=== PATIENT | female | born 1955 | race Caucasian/White ===

== ENCOUNTER → 2016-12-26 | Outpatient (CLI) | payer BC | END | disposition home or self-care (01) | LOC: MW.CHGS 11:48 | PROVIDERS: ATTEND Surgery | DX: K40.90 Unilateral inguinal hernia, without obstruction or gangrene, not specified as recurrent (principal) | CPT/HCPCS: 36415; 82565; 84520 ==

== ENCOUNTER → 2017-01-02 | Outpatient (CLI) | payer BC ==
[~2017-01-02] MED LIST: Iopamidol 755 Mg/ML 100 ML Bottle IVPUSH STA
--- NOTE | 2017-01-02 15:37 | CT ---
CT of the abdomen and pelvis with contrast. HISTORY: Hernia TECHNIQUE: Axial CT images were obtained of the abdomen and pelvis following administration of 57 mL of Isovue-370 in the right antecubital fossa without complication. Coronal and sagittal reconstruct ions obtained. FINDINGS: The lung bases are clear, no pleural effusion. There is a tiny cyst within the left hepatic lobe. Th e spleen and adrenal glands appear normal. There is no bulky retroperitoneal lymphadenopathy or abdo chiki ascites. The kidneys enhance and function symmetrically without evidence of obstructive uropathy. Prominent b ilateral renal peripelvic cysts are noted. The large and small bowel are normal in caliber without evidence of obstruction. The appendix appear s normal. No focal pericolonic inflammation or stranding. There is a 2.2 cm right ovarian cyst. No p elvic lymphadenopathy or significant free pelvic fluid. The urinary bladder appears normal. There is a tiny fat-containing left inguinal hernia. No suspicious osseous abnormalities identified. Degenerative changes are noted within the lower lumb ar spine. IMPRESSION: 1. No acute findings within the abdomen or pelvis. 2. Renal cortical and peripelvic cysts. 3. Tiny fat-containing left inguinal hernia.
== END ==
LOC: MW.DI 12:54
PROVIDERS: ATTEND Surgery
DX: K40.90 Unilateral inguinal hernia, without obstruction or gangrene, not specified as recurrent (principal); N83.201 Unspecified ovarian cyst, right side; Q61.01 Congenital single renal cyst
CPT/HCPCS: 74177; Q9967

== ENCOUNTER 2017-01-19 09:45 | Day surgery (SDC) | payer BC ==
[~2017-01-19 09:45] MED LIST changes: +Bupivacaine 0.25%/EPINEPHrine 1:200,000 10 ML SDV ONE; -Iopamidol 755 Mg/ML 100 ML Bottle IVPUSH STA; +Lactated Ringers 1,000 ML IV SCH; +Lidocaine 1% with EPINEPHrine 1:100,000 20 ML MDV ONE; +Octyl 2-Cyanoacrylate 1 Tube ONE; +ceFAZolin 2 GM in Premix Bag 1 BAG IV ONE
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
[2017-01-19] MEDS ORDERED: fentaNYL 250 MCG/5 ML SDV ONE (11:19)
[2017-01-19] MEDS ORDERED: Midazolam 1 MG/ML 2 ML SDV ONE (11:19)
[2017-01-19] MEDS ORDERED: Lidocaine 2% 5 ML SDV ONE (11:19)
[2017-01-19] MEDS ORDERED: Ondansetron 4 MG/2 ML SDV ONE (11:19)
[2017-01-19] MEDS ORDERED: Propofol 200 MG/20 ML SDV ONE (11:19)
[2017-01-19] MEDS ORDERED: Rocuronium 10 MG/ML 10 ML Syringe ONE (11:19)
[2017-01-19] MEDS ORDERED: ceFAZolin 1 GM Vial ONE (11:34)
[2017-01-19] MEDS ORDERED: fentaNYL 100 MCG/2 ML SDV IVPUSH PRN (12:15)
--- NOTE | 2017-01-19 13:52 | PCM.POSTAN ---
POST ANESTHESIA ASSESSMENT - MENTAL STATUS Mental Status: alert, oriented - RESPIRATORY Respiratory Status: respiratory rate WNL, airway patent - CARDIOVASCULAR CV Status: pulse rate WNL, blood pressure stable - GASTROINTESTINAL GI Status: no symptoms - POST OP HYDRATION Hydration Status: adequate & stable
--- NOTE | 2017-01-19 13:59 | PCM.OPNOTE ---
- General Post-Op/Procedure Note Date of Surgery/Procedure: 01/19/17 Operative Procedure(s): L inguinal hernia repair w mesh Findings: L large indirect hernia w pulsating iliac artery very close. [id number] Pre Op Diagnosis: ing hernia L Post-Op Diagnosis: Same Anesthesia Technique: General ET tube Primary Surgeon: Karthikeyan Spear Pathology: sent Complications: None Condition: Good Free Text/Narrative:: Intake & Output 01/18/17 01/19/17 01/19/17 22:59 06:59 14:59 Intake Total 1899 Balance 1899
[2017-01-19 15:07] VITALS: BP 118/64
--- NOTE | 2017-01-19 19:25 | PCM48HPAN ---
Post Anesthesia Note - EVALUATION WITHIN 48HRS OF ANESTHETIC Vital Signs in Normal Range: Yes Patient Participated in Evaluation: Yes Respiratory Function Stable: Yes Airway Patent: Yes Cardiovascular Function Stable: Yes Hydration Status Stable: Yes Pain Control Satisfactory: Yes Nausea and Vomiting Control Satisfactory: Yes Mental Status Recovered: Yes
--- NOTE | 2017-01-24 07:22 | OR ---
SURGEON: Karthikeyan Spear MD DATE OF PROCEDURE: 01/19/2017 PREOPERATIVE DIAGNOSIS: Left inguinal hernia. POSTOPERATIVE DIAGNOSIS: Left inguinal hernia. PROCEDURE PERFORMED: Repair of left inguinal hernia with mesh. COMPLICATIONS: None. FINDING: A very large indirect hernia with a pulsating iliac artery, very close and did not put a plug because of that and a mesh was used to reinforce the inguinal floor. PROCEDURE PERFORMED: The patient was taken to the operating room, placed in a supine position. Upon induction of general endotracheal anesthesia, the patient's left inguinal area was prepped and draped in a sterile fashion. A time-out was then called, patient identified, procedure identified, antibiotic given. Procedure then started. After assessment of appropriate landmark, a light drip was applied prophylactically and antibiotic given prophylactically. After assessment of appropriate landmark, a skin incision was made two finger above the left inguinal crease and the patient weighed 102 pounds. There is absolutely no subcutaneous fat or subcutaneous structure. The external oblique was right in front of the eye just after cutting the skin and the hernia was located and the external oblique was opened along its fiber direction by the use of the Metzenbaum scissor, and the content clearly was carefully delineated from the inguinal floor. There was a large lipoma and this was then pushed back to the peritoneal cavity. Assessment of the hernia is large hernia, at lease 1 cm, and the iliac artery, because of patient's habitus, patient weighed 102 pounds, the iliac artery you can feel the pulsation right at the boundary right below the inguinal ligament. Because of the iliac artery's proximity and the patient's skinny nature, there is absolutely nothing in between the Poupart ligament and the iliac artery, very little, I mean you can even feel the arteries pulsating and decided not to put a plug, just use ligament to reinforce the situation and just use the mass to reinforce the inguinal floor. A custom- made mesh, small size, was anchored to the lateral aspect of the rectus muscle with 2-0 Prolene and the medial stitches anchored to the periosteum and the lateral boundaries anchored to the poupart ligament and when it is getting close to the iliac artery, as I reiterated the patient has really have nothing in between, I decided not to put the stitch over there is too dangerous. The mesh is covering the whole hernia defect and fastened beyond and way past the opening and is under the external oblique. Upon finished, the external oblique was repaired by use of 2-0 Vicryl and the Maxime's fascia was also closed with 2-0 Vicryl and skin approximated by use of skin staple and this was then followed with appropriate dressings. The patient tolerated the procedure well and Dr. Spear was present through the whole procedure. Just right after the initial skin numbing medication, subcu pain numbing medication, the needle was recapped, and the facility technician got a needle stick on the recapped needle, which punctured through the needle cap. Again the surgery repair of hernia is on the left side. As always, thank you for the kind referral. JOCELYNE / JUAN /[id number] MTDD
== END 2017-01-19 16:59 | disposition home or self-care (01) ==
LOC: MW.SDS 09:45
PROVIDERS: ATTEND Surgery
PROC: 0YU60JZ Supplement Left Inguinal Region with Synthetic Substitute, Open Approach (ICD-10-PCS; principal; 2017-01-19)
DX: K40.90 Unilateral inguinal hernia, without obstruction or gangrene, not specified as recurrent (principal); D17.5 Benign lipomatous neoplasm of intra-abdominal organs
CPT/HCPCS: 49505; 93005; C1781; J0690; J2250; J2405; J3010; J7120; 00830; A9270-GY; J2704

== ENCOUNTER 2017-02-28 07:22 | Day surgery (SDC) | payer BC ==
[~2017-02-28 07:22] MED LIST changes: -Bupivacaine 0.25%/EPINEPHrine 1:200,000 10 ML SDV ONE; -Lidocaine 1% with EPINEPHrine 1:100,000 20 ML MDV ONE; +Midazolam 1 MG/ML 2 ML SDV ONE; -Octyl 2-Cyanoacrylate 1 Tube ONE; +Propofol 200 MG/20 ML SDV ONE; -ceFAZolin 2 GM in Premix Bag 1 BAG IV ONE; +fentaNYL 100 MCG/2 ML SDV ONE
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
--- NOTE | 2017-02-28 09:09 | PCM.OPNOTE ---
- General Post-Op/Procedure Note Date of Surgery/Procedure: 02/28/17 Operative Procedure(s): colonoscopy Findings: see dict [id number] Pre Op Diagnosis: gib Post-Op Diagnosis: diverticulosis Anesthesia Technique: Moderate sedation Primary Surgeon: Karthikeyan Spear Complications: None Condition: Good
--- NOTE | 2017-02-28 09:19 | PCM.POSTAN ---
POST ANESTHESIA ASSESSMENT - MENTAL STATUS Mental Status: alert, oriented - RESPIRATORY Respiratory Status: respiratory rate WNL, airway patent, O2 saturation stable - CARDIOVASCULAR CV Status: pulse rate WNL, blood pressure stable - GASTROINTESTINAL GI Status: no symptoms - POST OP HYDRATION Hydration Status: adequate & stable - OBSERVATIONS Free Text/Narrative:: no anesthesia problems
[2017-02-28 10:01] VITALS: BP 125/72
--- NOTE | 2017-02-28 12:48 | OR ---
SURGEON: Karthikeyan Spear MD DATE OF PROCEDURE: 02/28/2017 PREOPERATIVE DIAGNOSIS: Rectal bleeding. POSTOPERATIVE DIAGNOSIS: Diverticulosis. COMPLICATIONS: None. PROCEDURE PERFORMED: Colonoscopy. FINDINGS: 1. 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 The patient is soundly snoring. 2. Bowel prep is average with no semi-formed stool and very little liquid stool. 3. The patient's colon has rather 12 punctures on the sigmoid area and requiring several maneuvering in order to get to the cecum. Cecum indicated by ileocecal fold, one-to-one indentation, light immittance. Appendix orifice is not observed. Mucosa examined when scope pulling out and with some irrigation, and the patient has mild diverticulosis on the left colon. No signs or symptoms of diverticulitis. No mass, polyp, bleeding, ulceration, AV malformation, stricture, or inflammation. The patient does have mild internal hemorrhoids and no external hemorrhoid. 4. The patient would benefit from repeat colonoscopy 10 years from today or if clinically indicated otherwise. DESCRIPTION OF PROCEDURE: The patient was taken to the endoscopy room. A time out was called, patient identified, and procedure identified. Diprivan was then administrated. Patient went from awake to sleep, hearing doctor talking or door closing is normal. Perineum inspection and digital examination were then performed. A well- lubricated colonoscope was gently inserted through the rectum, advanced past the rectosigmoid junction, the descending colon, splenic flexure, transverse colon, hepatic flexure, ascending colon, arrived to the cecum. Cecum was identified as dictated in the finding. Then the scope was carefully withdrawn while attention was paid to the mucosal surface for any abnormality. Air will be sucked out during the scope withdrawal. At the rectum, retroflexed to examine any rectal diseases, fistula or hemorrhoids. The patient tolerated procedure well. There were no intraoperative complications, and Dr. Spear was present throughout the whole procedure. JOCELYNE / JUAN /[id number]
== END 2017-02-28 09:40 | disposition home or self-care (01) ==
LOC: MW.SDS 07:22
PROVIDERS: ATTEND Surgery
DX: K57.30 Diverticulosis of large intestine without perforation or abscess without bleeding (principal); K64.8 Other hemorrhoids; K58.9 Irritable bowel syndrome, unspecified; J30.9 Allergic rhinitis, unspecified; Z98.890 Other specified postprocedural states
CPT/HCPCS: 45378; J2250; J3010; J7120; J2704

== ENCOUNTER 2020-10-13 08:09 | Day surgery (SDC) | payer BC ==
[2020-10-13] MEDS: Lactated Ringers 1,000 ML IV SCH ×2 (08:35→11:21)
[2020-10-13] MEDS ORDERED: Midazolam 1 MG/ML 2 ML SDV ONE (08:52)
[2020-10-13] MEDS ORDERED: Propofol 200 MG/20 ML SDV ONE (08:52)
[2020-10-13] MEDS ORDERED: Lidocaine 2% 5 ML SDV ONE (08:52)
[2020-10-13] MEDS ORDERED: fentaNYL 250 MCG/5 ML SDV ONE (08:52)
[2020-10-13] MEDS ORDERED: Ondansetron 4 MG/2 ML SDV ONE (08:52)
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
[2020-10-13] MEDS ORDERED: ePHEDrine 50 MG/ML SDV ONE (09:22)
[2020-10-13] MEDS ORDERED: Sodium Chloride 0.9% 20 ML ONE (09:22)
[2020-10-13] MEDS ORDERED: Glycopyrrolate 0.2 MG/ML SDV ONE (09:39)
--- NOTE | 2020-10-13 10:14 | PCM.OPNOTE ---
- General Post-Op/Procedure Note Date of Surgery/Procedure: 10/13/20 Operative Procedure(s): anterior colporrhaphy Findings: 3rd degree cystocele with anterior enterocele Pre Op Diagnosis: cystocele Post-Op Diagnosis: Same Anesthesia Technique: General LMA Primary Surgeon: Jackie Urbina Secondary Surgeon: Nani Garay Anesthesia Provider: Arsh Alex Tip Banding Machine Operator: Arsh Muñoz Pathology: vaginal mucosa Fluid Replacement, Intraop: 600 EBL in mLs: 25 Complications: None Known Condition: Good Free Text/Narrative:: vaginal packing in place.
[2020-10-13] MEDS ORDERED: Promethazine 25 MG/ML SDV IM PRN (10:15)
[2020-10-13] MEDS ORDERED: Ondansetron 4 MG/2 ML SDV IVPUSH PRN (10:15)
[2020-10-13] MEDS ORDERED: Acetaminophen 650 MG in Premix Bag 1 BAG IV ONE (10:20)
[2020-10-13] MEDS ORDERED: Morphine 2 MG/ML SYRINGE IVPUSH ONE (10:22)
--- NOTE | 2020-10-13 10:29 | PCM.POSTAN ---
POST ANESTHESIA ASSESSMENT - MENTAL STATUS Mental Status: Alert, Oriented - VITAL SIGNS Vital Signs: Last Vital Signs Temp 97.0 F 10/13/20 10:11 Pulse 70 10/13/20 10:26 Resp 12 10/13/20 10:26 BP 117/78 10/13/20 10:26 Pulse Ox 100 10/13/20 10:26 - RESPIRATORY Respiratory Status: Respiratory Rate WNL, Airway Patent, O2 Saturation Stable - CARDIOVASCULAR CV Status: Pulse Rate WNL, Blood Pressure Stable - GASTROINTESTINAL GI Status: No Symptoms - POST OP HYDRATION Hydration Status: Adequate & Stable
[2020-10-13] MEDS: Ketorolac 30 MG/ML SDV IVPUSH SCH ×3 (10:32→23:04)
--- NOTE | 2020-10-13 11:34 | OR ---
SURGEON: Jackie Urbina M.D. DATE OF PROCEDURE: 10/13/2020 PREOPERATIVE DIAGNOSIS: Symptomatic third-degree cystocele. POSTOPERATIVE DIAGNOSIS: Symptomatic third-degree cystocele. PROCEDURE: Anterior colporrhaphy. PRIMARY SURGEON: Jackie Urbina MD CAP MAKER: Nani Garay MD ANESTHESIA: General LMA. ESTIMATED BLOOD LOSS: 25 mL. FLUIDS: 600 mL of crystalloid. URINE OUTPUT: 50 mL. COMPLICATIONS: None known. DISPOSITION: Stable, to Recovery. PATHOLOGY SPECIMEN: Vaginal mucosa. BRIEF HISTORY: This is a 65-year-old female. 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 After she works, she notices a bulge coming from her vagina, also difficulty with emptying her bladder, and she desires correction of this. On examination, she has a high anterior cystocele with a possible anterior enterocele. I offered pessary versus proceeding with surgical management, and she desires to proceed with an anterior colporrhaphy with risks discussed including bleeding; infection; injury to bowel, bladder, blood vessels, ureters, or other organs; risk of thromboembolic event; and risk of anesthesia. Understanding all these risks, she does desire to proceed. DESCRIPTION OF PROCEDURE: With the patient in dorsal lithotomy position, under adequate general LMA analgesia, the perineum was prepped with chlorhexidine. The vagina was prepped with Betadine and draped in the usual fashion for a vaginal surgery. SCDs were in place. Heart catheter was in place. Appropriate time-out was held. She had received 1 g of Ancef IV, and a weighted speculum was placed posteriorly. There was good support beneath the urethral meatus. Just above this level, an Allis clamp was grasped. A second Allis was placed at the vaginal cuff, and hydrodissection was performed. The anterior vagina was entered using a scalpel and undermined in the midline using Metzenbaum scissors. Once I reached the cuff, it was apparent that there was an anterior enterocele. This was dissected, and a pursestring suture was utilized, incorporating the anterior muscularis layer and the more lateral support of the cuff. With the pursestring being complete, the enterocele was reduced, and a second layer was placed over the reduced enterocele for additional support. The muscularis layer was then in the more inferior vagina from the overlying muscularis layer and reapproximated using multiple interrupted mattress sutures of 2-0 Polysorb. The vaginal mucosa was slightly trimmed and closed using running locked suture of 0 Polysorb. The vagina was packed with vaginal packing instilled with a water- based lubricant. The Heart catheter was left in place. SCDs were left in place. Final sponge, needle, and instrument counts were reported as correct. There were no known complications. The patient was transferred to Recovery in good condition. RALPH MARTINEZ /[id number]
[2020-10-13] MEDS: Morphine 4 MG/ML Syringe IVPUSH PRN ×2 (12:54→21:26)
[2020-10-14 04:40] VITALS: PULSE 69
[2020-10-14] MEDS: Ketorolac 30 MG/ML SDV IVPUSH SCH ×2 (04:44→09:35)
[2020-10-14 06:07] LABS: BLOOD UREA NITROGEN,BUN 21 mg/dL (7.0-18.0); CARBON DIOXIDE,CO2 26.2 mmol/L (21.0-32.0); CHLORIDE,CL 106 mmol/L (98-107); GLUCOSE RANDOM 92 mg/dL (74-106); POTASSIUM,K 4.2 mmol/L (3.5-5.1); SODIUM,NA 141 mmol/L (136-145)
[2020-10-14 07:41] VITALS: BP 100/61
--- NOTE | 2020-10-14 08:52 | PCM.SURGPN ---
- General Info Date of Service: 10/14/20 Date of Surgery/Procedure: 10/13/20 POD#: 1 Post-Op Diagnosis: cystocele Functional Status: Reports: Pain Controlled, Tolerating Diet, Ambulating, Other (scant blood on pad. Packing fell out about 10 pm.). Denies: Urinating (has not yet voided since catheter out) - Review of Systems General: Reports: No Symptoms HEENT: Reports: No Symptoms Pulmonary: Reports: No Symptoms Cardiovascular: Reports: No Symptoms Gastrointestinal: Reports: No Symptoms Genitourinary: Reports: No Symptoms Musculoskeletal: Reports: No Symptoms Skin: Reports: No Symptoms Neurological: Reports: No Symptoms Psychiatric: Reports: No Symptoms - Patient Data Vitals - Most Recent: Last Vital Signs Temp 36.9 C 10/14/20 07:40 Pulse 69 10/14/20 07:40 Resp 16 10/14/20 07:40 BP 100/61 10/14/20 07:40 Pulse Ox 96 10/14/20 07:40 Weight - Most Recent: 44.452 kg I&O - Last 24 Hours: Intake & Output 10/13/20 10/14/20 10/14/20 22:59 06:59 14:59 Intake Total 760 450 Output Total 625 1325 Balance 135 -875 Lab Results Last 24 Hrs: Laboratory Results - last 24 hr 10/14/20 10/14/20 Range/Units 05:25 05:25 WBC 5.54 (4.0-11.0) K/uL RBC 3.89 L (4.30-5.90) M/uL Hgb 11.5 L (12.0-16.0) g/dL Hct 35.9 L (36.0-46.0) % MCV 92.3 (80.0-98.0) fL MCH 29.6 (27.0-32.0) pg MCHC 32.0 (31.0-37.0) g/dL RDW Std Deviation 41.8 (28.0-62.0) fl RDW Coeff of Tru 12 (11.0-15.0) % Plt Count 210 (150-400) K/uL MPV 9.40 (7.40-12.00) fL Neut % (Auto) 52.3 (48.0-80.0) % Lymph % (Auto) 36.3 (16.0-40.0) % [place] % (Auto) 10.1 (0.0-15.0) % Eos % (Auto) 1.3 (0.0-7.0) % Baso % (Auto) 0.0 (0.0-1.5) % Neut # (Auto) 2.9 (1.4-5.7) K/uL Lymph # (Auto) 2.0 (0.6-2.4) K/uL [place] # (Auto) 0.6 (0.0-0.8) K/uL Eos # (Auto) 0.1 (0.0-0.7) K/uL Baso # (Auto) 0.0 (0.0-0.1) K/uL Nucleated RBC % 0.0 /100WBC Nucleated RBCs # 0 K/uL Sodium 141 (136-145) mmol/L Potassium 4.2 (3.5-5.1) mmol/L Chloride 106 (98-107) mmol/L Carbon Dioxide 26.2 (21.0-32.0) mmol/L BUN 21 H (7.0-18.0) mg/dL Creatinine 0.8 (0.6-1.0) mg/dL Est Cr Clr Drug Dosing 48.54 mL/min Estimated GFR (MDRD) > 60.0 ml/min Glucose 92 (74-106) mg/dL Calcium 8.8 (8.5-10.1) mg/dL Med Orders - Current: Current Medications Lactated Ringer's (Ringers, Lactated) 1,000 mls @ 125 mls/hr IV ASDIRECTED [facility] Last Admin: 10/13/20 11:21 Dose: 125 mls/hr Documented by: Ketorolac Tromethamine (Toradol) 15 mg IVPUSH Q6H [facility] Stop: 10/18/20 10:15 Last Admin: 10/14/20 04:44 Dose: 15 mg Documented by: Morphine Sulfate (Morphine) 4 mg IVPUSH Q2H PRN PRN Reason: Pain (severe 7-10) Last Admin: 10/13/20 21:26 Dose: 4 mg Documented by: Ondansetron HCl (Zofran) 4 mg IVPUSH Q6H PRN PRN Reason: Nausea/Vomiting Promethazine HCl (Phenergan) 25 mg IM Q6H PRN PRN Reason: Nausea/Vomiting Discontinued Medications Ephedrine Sulfate (Ephedrine Sulfate) Confirm Administered Dose 50 mg .ROUTE .STK-MED ONE Stop: 10/13/20 09:23 Fentanyl (Sublimaze) Confirm Administered Dose 250 mcg .ROUTE .STK-MED ONE Stop: 10/13/20 08:53 Glycopyrrolate (Robinul) Confirm Administered Dose 0.2 mg .ROUTE .STK-MED ONE Stop: 10/13/20 09:40 Sodium Chloride (Normal Saline) Confirm Administered Dose 20 mls @ as directed .ROUTE .STK-MED ONE Stop: 10/13/20 09:23 Acetaminophen 650 mg/ Premix 65 mls @ 400 mls/hr IV NOW ONE Stop: 10/13/20 10:29 Last Admin: 10/13/20 10:37 Dose: 400 mls/hr Documented by: Lidocaine (Xylocaine-Mpf 2%) Confirm Administered Dose 5 ml .ROUTE .STK-MED ONE Stop: 10/13/20 08:53 Lidocaine HCl (Xylocaine-Mpf 1%) Confirm Administered Dose 5 ml .ROUTE .STK-MED ONE Stop: 10/13/20 08:56 Midazolam HCl (Versed 1 Mg/Ml) Confirm Administered Dose 2 mg .ROUTE .STK-MED ONE Stop: 10/13/20 08:53 Morphine Sulfate (Morphine) 2 mg IVPUSH ONETIME ONE Stop: 10/13/20 10:23 Last Admin: 10/13/20 12:48 Dose: Not Given Documented by: Ondansetron HCl (Zofran) Confirm Administered Dose 4 mg .ROUTE .STK-MED ONE Stop: 10/13/20 08:53 Propofol (Diprivan 20 Ml) Confirm Administered Dose 200 mg .ROUTE .STK-MED ONE Stop: 10/13/20 08:53 - Exam General: Alert HEENT: Pupils Equal Lungs: Normal Respiratory Effort GI/Abdominal Exam: Soft, Non-Tender, No Distention Extremities: Non-Tender, No Pedal Edema Psy/Mental Status: Alert, Normal Affect, Normal Mood Sepsis Event Note - Evaluation Sepsis Screening Result: No Definite Risk - Focused Exam Vital Signs: Vital Signs Temp Pulse Resp BP Pulse Ox 10/14/20 07:40 36.9 C 69 16 100/61 96 10/14/20 04:00 36.7 C 69 18 106/56 L 95 10/14/20 00:00 36.6 C 61 18 105/50 L 96 - Problem List & Annotations (1) Cystocele SNOMED Code(s): 799425965 Code(s): JGT4806 - Status: Acute Current Visit: Yes - Problem List Review Problem List Initiated/Reviewed/Updated: Yes - My Orders Last 24 Hours: Active Orders 24 hr Category Date Time Status Patient Status [ADT] Routine ADT 10/13/20 10:15 Active Antiembolic Devices [RC] PER UNIT ROUTINE Care 10/13/20 10:16 Active Notify Provider Intake and Out [RC] ASDIRECTED Care 10/13/20 10:15 Active Notify Provider Vital Signs [RC] ASDIRECTED Care 10/13/20 10:15 Active Oxygen Therapy [RC] ASDIRECTED Care 10/13/20 10:15 Active RT Incentive Spirometry [RC] Q2HWA Care 10/13/20 10:15 Active Up With Assistance [RC] PER UNIT ROUTINE Care 10/13/20 10:15 Active Up ad Marie [RC] PER UNIT ROUTINE Care 10/13/20 10:15 Active Urinary Catheter Removal [RC] Per Unit Routine Care 10/13/20 10:15 Active Vital Signs [RC] Q4H Care 10/13/20 10:15 Active Regular Diet [DIET] Diet 10/13/20 Lunch Active Ketorolac [Toradol] Med 10/13/20 10:15 Active 15 mg IVPUSH Q6H Morphine Med 10/13/20 10:15 Active 4 mg IVPUSH Q2H PRN Ondansetron [Zofran] Med 10/13/20 10:15 Active 4 mg IVPUSH Q6H PRN Promethazine [Phenergan] Med 10/13/20 10:15 Active 25 mg IM Q6H PRN Peripheral IV Discontinue [OM.PC] Routine Oth 10/13/20 10:15 Ordered Remove Vaginal Packing [OM.PC] Per Unit Routine Oth 10/13/20 10:16 Ordered Sequential Compression Device [OM.PC] Per Unit Routine Oth 10/13/20 10:15 Ordered Resuscitation Status Routine Resus Stat 10/13/20 10:15 Ordered Medication Orders Lactated Ringer's (Ringers, Lactated) 1,000 mls @ 125 mls/hr IV ASDIRECTED [facility] Last Admin: 10/13/20 11:21 Dose: 125 mls/hr Documented by: Infusion: 10/13/20 11:21 Dose: 125 mls/hr Documented by: Admin: 10/13/20 08:35 Dose: 125 mls/hr Documented by: TOM Ketorolac Tromethamine (Toradol) 15 mg IVPUSH Q6H [facility] Stop: 10/18/20 10:15 Last Admin: 10/14/20 04:44 Dose: 15 mg Documented by: Admin: 10/13/20 23:04 Dose: 15 mg Documented by: Admin: 10/13/20 16:23 Dose: 15 mg Documented by: Admin: 10/13/20 10:32 Dose: 15 mg Documented by: FELICIA Morphine Sulfate (Morphine) 4 mg IVPUSH Q2H PRN PRN Reason: Pain (severe 7-10) Last Admin: 10/13/20 21:26 Dose: 4 mg Documented by: Admin: 10/13/20 12:54 Dose: 4 mg Documented by: LILIA Ondansetron HCl (Zofran) 4 mg IVPUSH Q6H PRN PRN Reason: Nausea/Vomiting Promethazine HCl (Phenergan) 25 mg IM Q6H PRN PRN Reason: Nausea/Vomiting - Assessment Assessment (Free Text/Narrative):: POD#1 after anterior colporrhaphy. Stable, normal labs. Tolerating po, will need to void prior to discharge. - Plan Plan (Free Text/Narrative):: Dismiss to home today, precautions reviewed.
== END 2020-10-14 10:30 | disposition home or self-care (01) ==
LOC: MW.SDS 08:09 → MW.MS 10:56 → MW.SDS 10-14 10:30
PROVIDERS: ATTEND Obstetrics & Gynecology
DX: N81.11 Cystocele, midline (principal); M81.0 Age-related osteoporosis without current pathological fracture; N95.2 Postmenopausal atrophic vaginitis; H91.8X3 Other specified hearing loss, bilateral; Z79.899 Other long term (current) drug therapy; Z98.890 Other specified postprocedural states; Z91.040 Latex allergy status; Z88.5 Allergy status to narcotic agent; Z91.013 Allergy to seafood
CPT/HCPCS: 36415; 57240; 80048; 85025; 86850; 86900; 86901; 88302; J0131; J1885; J2001; J2250; J2270; J2704; J3010; J3490; J7120; 00942; J2405